=== PATIENT | female | born 1975 | race Caucasian/White ===

== ENCOUNTER → 2016-10-15 | Outpatient (CLI) | payer OTHER | LOC: FIMAGING 07:29 | DX: Z12.31 Encounter for screening mammogram for malignant neoplasm of breast (principal) | CPT/HCPCS: G0202 ==

== ENCOUNTER 2017-01-17 21:51 | Emergency (ER) | payer OTHER ==
[2017-01-17 22:10] VITALS: RESP 16; TEMP 98.1; O2SAT 95
--- NOTE | 2017-01-17 22:48 | EDPHY ---
H & P Time Seen by Provider: 01/17/17 22:30 HPI/ROS: CHIEF COMPLAINT: Right dorsal foot pain HISTORY OF PRESENT ILLNESS: 41-year-old immunocompetent female with out-of- date tetanus complaining of atraumatic right dorsal foot pain at the 3rd and 4th metatarsal pharyngeal joint. She does note that she has been increasing her running activity recently, she has reproducible pain with pushing off of her foot. Pain is been present for the past 2 days. She is leaving for [place] in the morning for 14 days. She denies: Lymphangitic streaking, fever , chills, paresthesia, history of gout, flu-like symptoms. PHYSICAL EXAM (Prior to examination, patient consented to physical exam, hands were washed and my usual and customary physical exam procedures followed) 1) GENERAL: Well-developed, well-nourished, alert and oriented. Appears to be in no acute distress. 2) HEAD: Normocephalic 3) HEENT: Pupils equal, round, reactive to light bilaterally. 4) LUNGS: Breathing comfortably. 5) MUSCULOSKELETAL: Range of motion of all the toes elicits no pain including axial loading of the joints. No crepitus. proximal tibia and fibula nontender .5th MT nontender negative Cabello test, compartments soft 6) SKIN: right foot the 3rd and 4th MTP erythema and induration extending proximally 2.5 cm. No other lymphangitic streaking. There is no crepitus. Compartments are soft . Capillary refill is less than 2 seconds normal coloration of the toes 7) VASCULAR: DP,PT pulses and cap refill present and brisk DIFFERENTIAL DIAGNOSIS: in no particular order including but not limited to fracture, sprain, compartment syndrome, gouty arthritis, stress fracture, cellulitis Procedure: Splint A postop shoe splint was applied by ER cytogenetic technician. After application of the splint I returned and re-examined the patient. The splint was adequately immobilizing the joint and distal to the splint the patient's circulation and sensation were intact. Patient shows no signs of compartment syndrome. Was given orthopedic precautions. Smoking Status: Never smoked Constitutional: Initial Vital Signs Temperature (C) 36.7 C 01/17/17 22:05 Heart Rate 56 L 01/17/17 22:05 Respiratory Rate 16 01/17/17 22:05 Blood Pressure 98/62 L 01/17/17 22:05 O2 Sat (%) 95 01/17/17 22:05 O2 Delivery Mode Room Air Allergies/Adverse Reactions: erythromycin base [Erythromycin Base] Allergy (Verified 03/30/11 19:31) GI Penicillins Allergy (Verified 03/30/11 19:31) Rash Home Medications: Medication Instructions Recorded Cephalexin [Keflex] 500 mg PO QID 10 Days 01/17/17 Supplements 01/17/17 MDM/Departure - MDM Imaging Results: Imaging Impressions Foot X-Ray 01/17/17 22:11 Impression: Negative right foot radiographs. Images reviewed myself Procedures: Procedure: Splint A postop shoe splint was applied by ER cytogenetic technician. After application of the splint I returned and re-examined the patient. The splint was adequately immobilizing the joint and distal to the splint the patient's circulation and sensation were intact. Patient shows no signs of compartment syndrome. Was given orthopedic precautions. ED Course/Re-evaluation: Discussed my differential diagnosis with this patient. We discussed possibility of acute gouty arthritis although the I think this would be slightly more unusual in the 3rd and 4th MTP with no prior history of similar. In addition she has no pain with range of motion of the aforementioned toes including axial loading the joints. I think that this less than likely represents acute gouty arthritis or septic arthritis. She is noted to have erythema and induration which I think are more than likely secondary to early cellulitis of this area. No history of chronic skin infections. I have recommended starting the patient on cephalosporin and updating her tetanus which he is agreeable with. I think that compartment syndrome is less than likely etiology of her symptoms. We discussed possibility of stress fracture not visualized on plain x-ray. We discussed the challenges of visualizing this on plain x-ray. I do not think that emergent MRI is indicated. Doubt DVT. Doubt arterial occlusion. Have recommended a postoperative shoe and follow up with Podiatry. She is able floor in the morning. Recommended elevation. If she develops worsening of symptoms she needs to seek medical attention immediately. She feels comfortable with this plan all questions and concerns addressed by myself. Usual and customary discharge precautions instructions provided - Depart Disposition: Home, Routine, Self-Care Clinical Impression: Cellulitis of foot Condition: Good Instructions: Cephalexin (By mouth), Cellulitis (ED) Additional Instructions: Seek immediate medical attention if you develop new or worsening symptoms, if you develop red streaks going up your foot or leg, inability to bear weight or decreased range of motion, fevers or chills or any other symptoms that concern you. Keep your foot elevated above level of heart whenever possible Prescriptions: Cephalexin [Keflex] 500 mg PO QID 10 Days Referrals: Sal Patel MD [Doctor of Podiatric Medicine] - 5-7 days, call for appt.
[2017-01-17] MEDS ORDERED: TDAP ADULT 0.5 ML INJ (BOOSTRIX) IM ONE (22:50)
[2017-01-17] MEDS ORDERED: CEPHALEXIN 500MG PREPACK#4 BTL TAKEHOME ONE (22:50)
[2017-01-17 23:15] VITALS: BP 97/60; PULSE 52
== END 2017-01-17 23:14 | disposition home or self-care (01) ==
DX: L03.115 Cellulitis of right lower limb (principal); Z23 Encounter for immunization

== ENCOUNTER → 2017-02-17 | Outpatient (CLI) | payer OTHER | LOC: FIMAGING 13:33 | PROVIDERS: ATTEND Pathology Anatomic Pathology & Clinical Pathology | DX: M79.671 Pain in right foot (principal) ==

== ENCOUNTER → 2017-10-16 | Outpatient (CLI) | payer OTHER | LOC: FIMAGING 09:03 | PROVIDERS: ATTEND Obstetrics & Gynecology | DX: Z12.31 Encounter for screening mammogram for malignant neoplasm of breast (principal) ==

== ENCOUNTER → 2018-10-19 | Outpatient (CLI) | payer OTHER | LOC: FIMAGING 11:17 | PROVIDERS: ATTEND Obstetrics & Gynecology | DX: Z12.31 Encounter for screening mammogram for malignant neoplasm of breast (principal); R92.0 Mammographic microcalcification found on diagnostic imaging of breast ==

== ENCOUNTER → 2018-10-29 | Outpatient (CLI) | payer OTHER | LOC: FIMAGING 12:23 | PROVIDERS: ATTEND Family Medicine | DX: R92.0 Mammographic microcalcification found on diagnostic imaging of breast (principal) ==